=== PATIENT | male | born 1975 | race Two or more races ===

== ENCOUNTER 2018-11-14 10:46 | Outpatient (CLI) | payer OTHER | END 2018-11-14 10:48 | disposition home or self-care (01) | LOC: SONOGRAMA 10:46 | DX: I10 Essential (primary) hypertension (principal); R94.5 Abnormal results of liver function studies; A93.8 Other specified arthropod-borne viral fevers ==

== ENCOUNTER → 2020-06-14 11:58 | Outpatient (CLI) | payer OTHER | END | disposition home or self-care (01) | LOC: LAB 11:58 | PROVIDERS: ATTEND Physical Medicine & Rehabilitation | DX: M54.2 Cervicalgia (principal); Z20.828 Contact with and (suspected) exposure to other viral communicable diseases; Z11.59 Encounter for screening for other viral diseases ==

== ENCOUNTER 2021-09-14 09:00 | Outpatient (CLI) | payer OTHER | END 2021-09-14 09:13 | disposition home or self-care (01) | LOC: RAD 09:00 | PROVIDERS: ATTEND Specialist | DX: I10 Essential (primary) hypertension (principal); E78.49 Other hyperlipidemia; M25.571 Pain in right ankle and joints of right foot; M25.572 Pain in left ankle and joints of left foot ==

== ENCOUNTER 2021-09-29 09:18 | Outpatient (CLI) | payer OTHER | END 2021-09-29 09:36 | disposition home or self-care (01) | LOC: SONOGRAMA 09:18 | PROVIDERS: ATTEND General Practice | DX: K80.18 Calculus of gallbladder with other cholecystitis without obstruction (principal); R19.5 Other fecal abnormalities; R10.84 Generalized abdominal pain; K80.80 Other cholelithiasis without obstruction ==

== ENCOUNTER 2021-10-19 12:02 | Emergency (ER) | payer OTHER ==
[~2021-10-19] VITALS: Ht 170.2 cm; Wt 129.3 kg
[2021-10-19] MEDS ORDERED: COZAAR100 MG PO (12:29)
[2021-10-19] MEDS ORDERED: ORPHENADRINE C100 MG PO (17:11)
[2021-10-19] MEDS ORDERED: BACTRIM 400-801 EACH PO (17:11)
[2021-10-19] MEDS ORDERED: TAMS0.4C PO (17:13)
== END 2021-10-19 17:24 | disposition home or self-care (01) ==
LOC: ER 12:02
DX: G44.209 Tension-type headache, unspecified, not intractable (principal)

== ENCOUNTER 2022-02-07 07:31 | Outpatient (CLI) | payer OTHER ==
[~2022-02-07 07:31] MED LIST: BACTRIM 400-801 EACH PO; COZAAR100 MG PO; ORPHENADRINE C100 MG PO; TAMS0.4C PO
== END 2022-02-07 07:33 | disposition home or self-care (01) ==
LOC: TOM 07:31
PROVIDERS: ATTEND General Practice
DX: R10.9 Unspecified abdominal pain (principal); R94.5 Abnormal results of liver function studies

== ENCOUNTER 2022-03-06 11:03 | Outpatient (CLI) | payer OTHER | END 2022-03-06 11:20 | disposition home or self-care (01) | LOC: SONOGRAMA 11:03 | PROVIDERS: ATTEND General Practice | DX: E07.9 Disorder of thyroid, unspecified (principal); E11.65 Type 2 diabetes mellitus with hyperglycemia; E08.65 Diabetes mellitus due to underlying condition with hyperglycemia; R22.2 Localized swelling, mass and lump, trunk; R22.9 Localized swelling, mass and lump, unspecified ==

== ENCOUNTER 2022-03-06 12:43 | Outpatient (CLI) | payer OTHER | END 2022-03-06 12:44 | disposition home or self-care (01) | LOC: LAB 12:43 | PROVIDERS: ATTEND General Practice | DX: E07.9 Disorder of thyroid, unspecified (principal); R94.5 Abnormal results of liver function studies; K76.9 Liver disease, unspecified; R22.2 Localized swelling, mass and lump, trunk ==

== ENCOUNTER → 2022-03-20 | Outpatient (CLI) | payer OTHER | END | disposition home or self-care (01) | LOC: MRI 07:35 | PROVIDERS: ATTEND General Practice | DX: R22.2 Localized swelling, mass and lump, trunk (principal); R22.9 Localized swelling, mass and lump, unspecified; K63.9 Disease of intestine, unspecified; N49.0 Inflammatory disorders of seminal vesicle; R16.1 Splenomegaly, not elsewhere classified; K74.60 Unspecified cirrhosis of liver; K76.9 Liver disease, unspecified; R94.5 Abnormal results of liver function studies; E07.9 Disorder of thyroid, unspecified; D17.5 Benign lipomatous neoplasm of intra-abdominal organs; E11.65 Type 2 diabetes mellitus with hyperglycemia; E08.65 Diabetes mellitus due to underlying condition with hyperglycemia | CPT/HCPCS: 74182 ==

== ENCOUNTER 2022-04-11 07:16 | Outpatient (CLI) | payer OTHER | END 2022-04-11 07:21 | disposition home or self-care (01) | LOC: NUCLEAR 07:16 | PROVIDERS: ATTEND Internal Medicine Gastroenterology | DX: K81.9 Cholecystitis, unspecified (principal); Z88.6 Allergy status to analgesic agent | CPT/HCPCS: 78227; A9537 ==

== ENCOUNTER 2022-09-12 07:48 | Outpatient (CLI) | payer OTHER | END 2022-09-12 08:02 | disposition home or self-care (01) | LOC: MRI 07:48 | PROVIDERS: ATTEND General Practice | DX: M54.2 Cervicalgia (principal); E11.40 Type 2 diabetes mellitus with diabetic neuropathy, unspecified; M79.603 Pain in arm, unspecified | CPT/HCPCS: 72156 ==

== ENCOUNTER 2022-11-27 07:08 | Outpatient (CLI) | payer OTHER ==
[~2022-11-27 07:08] MED LIST changes: +NABUMETONE750 MG PO
== END 2022-11-27 07:15 | disposition home or self-care (01) ==
LOC: SONOGRAMA 07:08
PROVIDERS: ATTEND Internal Medicine
DX: K76.0 Fatty (change of) liver, not elsewhere classified (principal)

== ENCOUNTER 2023-02-05 09:19 | Outpatient (CLI) | payer OTHER | END 2023-02-05 09:20 | disposition home or self-care (01) | LOC: NUCLEAR 09:19 | PROVIDERS: ATTEND General Practice | DX: I70.212 Atherosclerosis of native arteries of extremities with intermittent claudication, left leg (principal); M79.606 Pain in leg, unspecified ==

== ENCOUNTER 2023-03-01 09:26 | Outpatient (CLI) | payer OTHER | END 2023-03-01 09:27 | disposition home or self-care (01) | LOC: NUCLEAR 09:26 | PROVIDERS: ATTEND General Practice | DX: M79.662 Pain in left lower leg (principal); M79.606 Pain in leg, unspecified; I70.212 Atherosclerosis of native arteries of extremities with intermittent claudication, left leg ==

== ENCOUNTER 2023-03-01 13:48 | Outpatient (CLI) | payer OTHER | END 2023-03-01 13:52 | disposition home or self-care (01) | LOC: LAB 13:48 | PROVIDERS: ATTEND Radiology Diagnostic Radiology | DX: K74.60 Unspecified cirrhosis of liver (principal) ==

== ENCOUNTER 2023-03-04 08:20 | Outpatient (CLI) | payer OTHER | END 2023-03-04 08:38 | disposition home or self-care (01) | LOC: TOM 08:20 | PROVIDERS: ATTEND General Practice | DX: K80.80 Other cholelithiasis without obstruction (principal); K74.60 Unspecified cirrhosis of liver ==

== ENCOUNTER 2023-05-31 09:57 | Emergency (ER) | payer OTHER ==
[~2023-05-31] VITALS: Ht 170.2 cm; Wt 118.8 kg
[2023-05-31] MEDS ORDERED: AMLODIPINE BESYL5 MG PO (10:11)
[2023-05-31] MEDS ORDERED: JARDIANCE10 MG PO (10:11)
== END 2023-05-31 14:51 | disposition home or self-care (01) ==
LOC: ER 09:57
DX: R10.9 Unspecified abdominal pain (principal); E11.9 Type 2 diabetes mellitus without complications; I10 Essential (primary) hypertension

== ENCOUNTER 2023-12-23 15:14 | Outpatient (CLI) | payer OTHER ==
[~2023-12-23 15:14] MED LIST changes: +AMLODIPINE BESYL5 MG PO; +JARDIANCE10 MG PO
== END 2023-12-23 15:26 | disposition home or self-care (01) ==
LOC: MRI 15:14
PROVIDERS: ATTEND Anesthesiology
DX: M25.562 Pain in left knee (principal)
CPT/HCPCS: 73721

== ENCOUNTER 2024-01-28 09:53 | Outpatient (CLI) | payer OTHER | END 2024-01-28 10:02 | disposition home or self-care (01) | LOC: RAD 09:53 | PROVIDERS: ATTEND Orthopaedic Surgery | DX: D68.9 Coagulation defect, unspecified (principal); Z03.818 Encounter for observation for suspected exposure to other biological agents ruled out; Z20.828 Contact with and (suspected) exposure to other viral communicable diseases ==

== ENCOUNTER 2024-10-07 10:11 | Emergency (ER) | payer OTHER ==
[~2024-10-07] VITALS: Ht 172.7 cm; Wt 115.7 kg
[2024-10-07] MEDS ORDERED: BENICAR5 MG PO (10:54)
[2024-10-07] MEDS ORDERED: CLOTRIMAZOLE-BE15 G1 TOP (11:28)
== END 2024-10-07 12:24 | disposition home or self-care (01) ==
LOC: ER 10:13
DX: B37.42 Candidal balanitis (principal); I10 Essential (primary) hypertension; E11.9 Type 2 diabetes mellitus without complications

== ENCOUNTER 2024-10-08 07:07 | Outpatient (CLI) | payer OTHER ==
[~2024-10-08 07:07] MED LIST changes: +BENICAR5 MG PO; +CLOTRIMAZOLE-BE15 G1 TOP
== END 2024-10-08 07:18 | disposition home or self-care (01) ==
LOC: SONOGRAMA 07:07
DX: K74.69 Other cirrhosis of liver (principal)

== ENCOUNTER 2025-03-17 08:09 | Outpatient (CLI) | payer OTHER | END 2025-03-17 08:25 | disposition home or self-care (01) | LOC: SONOGRAMA 08:09 | PROVIDERS: ATTEND Specialist | DX: K74.60 Unspecified cirrhosis of liver (principal); I10 Essential (primary) hypertension; D64.9 Anemia, unspecified; Z12.11 Encounter for screening for malignant neoplasm of colon ==

== ENCOUNTER 2025-09-29 07:39 | Outpatient (CLI) | payer OTHER | END 2025-09-29 07:45 | disposition home or self-care (01) | LOC: MRI 07:39 | PROVIDERS: ATTEND Specialist | DX: K74.60 Unspecified cirrhosis of liver (principal) | CPT/HCPCS: 74181 ==